=== PATIENT | female | born 1960 | race Caucasian/White ===

== ENCOUNTER 2019-07-17 07:47 | Outpatient (CLI) | payer BC, SELFPAY ==
--- NOTE | ~2019-07-17 | DEXA_ITS ---
Bone Density Report Name: Dori Huff Age: 59 Sex: Female Ethnicity: White Date of : 1960 Indication: postmenopausal; cancer; hysterectomy; Referring Provider: Rusyt Garcia Study: Bone densitometry was performed. Exam Date: July 17, 2019 Accession number: [id number] Bone Density: Region BMD T-score Z-score Classification AP Spine (L1-L4) 0.874 -1.6 -0.3 Osteopenia Femoral Neck (Left) 0.751 -0.9 0.3 Normal Total Hip (Left) 0.875 -0.6 0.3 Normal Total Hip Bilateral Avg 0.848 -0.8 0.1 Normal Femoral Neck (Right) 0.642 -1.9 -0.7 Osteopenia Total Hip (Right) 0.820 -1.0 -0.2 Normal World Health Organization criteria for BMD impression classify patients as: Normal (T-score at or above -1.0), Osteopenia (T-score between -1.0 and -2.5), or Osteoporosis (T-score at or below -2.5). 10-year Fracture Risk(1): Major Osteoporotic Fracture 8.4% Hip Fracture 0.9% Reported Risk Factors: [place] (), Neck BMD=0.642, BMI=26.9 (1) FRAX(R) Version 3.08. Fracture probability calculated for an untreated patient. Fracture probability may be lower if the patient has received treatment. Previous Exams: Region Exam Age BMD T-score BMD Change BMD Change Date g/cm2 vs Baseline vs Previous AP Spine(L1-L4) 07/17/2019 59 0.874 -1.6 -0.066(-7.0%)# -0.067(-7.1%)* 06/20/2014 54 0.941 -1.0 0.000(0.1%)# 0.000(0.1%)# 11/18/2011 51 0.941 -1.0 Total Hip(Left) 07/17/2019 59 0.875 -0.6 0.015(1.7%)# 0.014(1.7%) 06/20/2014 54 0.860 -0.7 0.000(0.1%)# 0.000(0.1%)# 11/18/2011 51 0.860 -0.7 Total Hip(Right) 07/17/2019 59 0.820 -1.0 -0.003(-0.4%)# -0.036(-4.2%)* 06/20/2014 54 0.856 -0.7 0.033(4.0%)# 0.033(4.0%)# 11/18/2011 51 0.823 -1.0 *Denotes significance at 95% confidence level, LSC for AP Spine = 0.022 g/cm2, LSC for Total Hip = 0.027 g/cm2 Clinical Information Provided by Patient: Has the following medical conditions: Cancer, Hysterectomy Patient maximum height was 61 Menopause Age: 48 Drinks caffeinated beverages Onset of menses at age 16 Number of children 1 Impression: The patient has low bone mass, based on the Right Femoral Neck T-score. The patient has an estimated ten-year risk of hip fracture of 0.9% and an estimated ten-year risk of major fracture of 8.4%, based on the WHO FRAX algorithm. The BMD for the AP Spine(L1-L4) decreased, changing by -7.1% since the last DXA exam. The BMD for t
== END 2019-07-17 07:48 | disposition home or self-care (01) ==
PROVIDERS: Family Provider Obstetrics & Gynecology; PCP Internal Medicine; Visit Provider Internal Medicine
DX: Z78.0 Asymptomatic menopausal state (principal); M85.88 Other specified disorders of bone density and structure, other site; M85.811 Other specified disorders of bone density and structure, right shoulder
CPT/HCPCS: 77080

== ENCOUNTER 2020-03-19 16:57 | Outpatient (CLI) | payer BC, SELFPAY ==
--- NOTE | ~2020-03-19 | MM_ITS ---
EXAMINATION: MM screening [facility] BI w kellie HISTORY: Screening mammogram TECHNIQUE: Craniocaudal and mediolateral oblique 3-D tomosynthesis images were obtained and synthetic 2-D images were generated. CAD analysis was submitted and interpreted. COMPARISON: 01/18/2019, 01/12/2018, 12/27/2016 BREAST PARENCHYMAL COMPOSITION: There are scattered areas of fibroglandular density. FINDINGS: There is no evidence of suspicious mass, calcification, or architectural distortion to sugg est malignancy in either breast. There has been no suspicious interval change. IMPRESSION: 1. No mammographic evidence of malignancy. 2. Recommend routine screening mammography in one year. BI-RADS Category 1: Negative Reviewed, dictated and finalized at location A.
== END 2020-03-19 16:58 | disposition home or self-care (01) ==
LOC: ANHIMG 16:59
PROVIDERS: PCP Internal Medicine; Visit Provider Obstetrics & Gynecology
DX: Z12.31 Encounter for screening mammogram for malignant neoplasm of breast (principal)
CPT/HCPCS: 77063; 77067

== ENCOUNTER → 2020-09-05 00:31 | Outpatient (CLI) | payer BC, SELFPAY ==
[2020-09-05 19:12] LABS: SARS-CoV-2 RNA PCR Negative
== END ==
PROVIDERS: PCP Internal Medicine; Visit Provider Internal Medicine Gastroenterology
DX: Z01.812 Encounter for preprocedural laboratory examination (principal); Z20.822 Contact with and (suspected) exposure to COVID-19
CPT/HCPCS: C9803; U0003; U0005

== ENCOUNTER 2020-09-07 23:55 | Emergency (ER) | payer BC, SELFPAY ==
[2020-09-07 23:55] VITALS: BP 132/85; PULSE 69; RESP 18; TEMP 36.7; O2SAT 98
--- NOTE | 2020-09-07 23:57 | ED.NEUROSD ---
HPI - Neuro Symptoms/Deficit General Chief Complaint: Neuro Symptoms/Deficit Stated Complaint: resolved tingling in ext, resolved slurred speech Time Seen by Provider: 09/07/20 23:56 History of Present Illness HPI Narrative: 60 yo female presents to the ED from home for slurred speech and extremity tingling. She is currently doing a bowel prep for a colonoscopy in the morning. She awoke around 2200 to use the restroom. While on the toilet she began to vomit. She then noted tingling in the hands and feet. She called out for help and she felt that her speech was slurred. Her symptoms resolved prior to arrival. No chest pain, SOB, confusion. Related Data Home Medications Medication Instructions Recorded Confirmed cholecalciferol (vitamin D3) 125 mcg PO DAILY 08/25/20 09/08/20 [Vitamin D3] loratadine [Claritin] 10 mg PO DAILY 08/25/20 09/08/20 Allergies Allergy/AdvReac Type Severity Reaction Status Date / Time No Known Allergies Allergy Verified 09/08/20 10:50 Review of Systems Review of Systems: All systems reviewed & are unremarkable except as noted in HPI and below Constitutional: Constitutional: Denies chills and Denies fever(s) ENT: Reports system reviewed and no additional complaints, except as documented Cardiovascular: Cardiovascular: Denies chest pain Respiratory: Respiratory: Denies dyspnea Gastrointestinal: Gastrointestinal: Reports diarrhea, Reports nausea and Reports vomiting Genitourinary: Genitourinary: Reports no additional female genitourinary complaints Neurologic: Denies confusion, Reports numbness and Denies weakness [facility] Past Medical History Medical History (Updated 09/09/20 @ 00:00 by Wily Daluna) GERD (gastroesophageal reflux disease) Hx of non-Hodgkin's lymphoma Peripheral polyneuropathy Surgical History Surgical History History of hysterectomy Family History Family History Father Diabetes mellitus Family history of diabetes mellitus in first degree relative Sibling Family history of glaucoma Family history of kidney stones Mother Hypertension Family history of Alzheimer's disease Grandparent Family history of lung cancer Other Family history of arthritis Family history of osteoporosis Social History Social History Smoking packs per day: 1 Smoking cigarettes per day: 20.0 Years smoked: 10 Smoking pack-years: 10.00 Smoking status: Former smoker Tobacco type: cigarettes Smoking end date: 06/19/88 Alcohol intake: never Substance use: never Substance use type: does not use Living arrangements: with family Gender identity (if verbalized by the patient): Female Spiritual care concerns: No Exam Const: General: healthy appearing, no acute distress and alert Orientation/consciousness: patient oriented x3 HENMT: Head: normal to inspection Eyes: Conjunctivae: conjunctivae normal Pupils: Equal, round and reactive pupils present EOM: EOMs intact bilaterally Neck: Neck: normal visual inspection Chest: Chest palpation & inspection: no tenderness Resp: Effort & Inspection: normal respiratory effort Auscultation: clear to auscultation bilaterally, no rales, no rhonchi and no wheezes Cardio: Jugular venous distension: no JVD Rate: regular rate Rhythm: regular rhythm Heart sounds: no murmurs GI: Inspection: non-distended GI Palp: Yes Soft to palpation and No Tenderness to palpation present (GI) Skin: General skin exam: normal color Neuro: General: patient oriented x3, moves all extremities, no focal motor deficits and CN's II-XI intact bilaterally Cranial nerves: Yes Nystagmus not present Speech: normal speech Gait exam (Neuro): Normal gait present Extrem: General: no edema Psych: Appearance: well kempt Affect: normal affect Course Vi
--- NOTE | 2020-09-08 00:02 | ECG_ITS ---
Measurements Intervals [place] Rate: 70 P: 25 MN: 166 QRS: 3 QRSD: 92 T: 30 QT: 422 QTc: 456 Interpretive Statements SINUS RHYTHM INCOMPLETE RIGHT BUNDLE BRANCH BLOCK BORDERLINE ST ABNORMALITY- ANTEROLAT/INF LEADS BORDERLINE ECG Electronically Signed On 09-11-2020 10:22:29 CDT by Ino Botello D.O.
[2020-09-08] MEDS: ONDANSETRON INJ 4 MG/2 ML VIAL IV PUSH (00:25)
[2020-09-08] MEDS: SODIUM CHLORIDE 0.9% IV 1,000 ML 999 ML IV CONT (00:25)
[2020-09-08 00:34] LABS: Basophils Percent Auto 0.4 % (0.2-1.2); Eosinophils Absolute Auto 0.1 K/mm3 (0-0.3); Eosinophils Percent Auto 0.9 % (0-4.4); Hemoglobin 14.2 g/dL (12.0-15.0); Immature Granulocyte Absolute 0.04 K/mm3 (0.00-0.031); Immature Granulocyte Percent A 0.4 % (0-0.5); Lymphocytes Absolute Auto 1.95 K/mm3 (0.9-3.2); Lymphocytes Percent Auto 18.7 % (18.3-44.2); Mean Corpuscular HGB Conc 33.8 g/dl (32-36); Mean Corpuscular Hemoglobin 30.9 pg (26-34); Mean Corpuscular Volume 91.3 fl (80-100); Mean Platelet Volume 9.9 fl (7.4-10.4); Monocytes Absolute Auto 0.6 K/mm3 (0.1-0.6); Monocytes Percent Auto 5.5 % (2.6-8.5); Neutrophils Absolute Auto 7.8 K/mm3 (1.3-6.7); Neutrophils Percent Auto 74.1 % (45.5-73.1); Platelet Count Result 213 k/mm3 (150-375); Red Cell Distribution Width 12.5 % (11.5-14.5); White Blood Count 10.4 K/mm3 (4.5-10.0)
[2020-09-08 00:49] LABS: Alanine Aminotransferase 19 U/L (4-35); Alkaline Phosphatase 93 U/L (38-126); Anion Gap 7 mmol/L (8-16); Aspartate Amino Transferase 23 U/L (14-36); Bilirubin,Total 1.2 mg/dL (0.2-1.3); Blood Urea Nitrogen 14 mg/dL (7-17); Calcium 8.7 mg/dL (8.4-10.2); Carbon Dioxide 27 mmol/L (22-30); Chloride 105 mmol/L (98-107); Estimated CRCL calculation 65 ml/min; Estimated Glomerular Filt Rate > 60; Glucose 115 mg/dL (65-105); Potassium 3.4 mmol/L (3.4-5.0); Sodium 139 mmol/L (137-145)
[2020-09-08 01:16] VITALS: BP 116/69; PULSE 72; RESP 16; O2SAT 98
[2020-09-08 01:41] VITALS: BP 113/70; BP 122/73; PULSE 68; PULSE 81; RESP 18; O2SAT 97
[2020-09-08 01:43] VITALS: BP 115/65; BP 122/73; PULSE 72; PULSE 90; RESP 22; O2SAT 97
[2020-09-08 01:45] VITALS: BP 115/65; PULSE 88; RESP 21; O2SAT 97
[2020-09-08 01:46] VITALS: BP 120/70; PULSE 81; RESP 20; O2SAT 97
== END 2020-09-08 02:09 | disposition home or self-care (01) ==
PROVIDERS: Emergency Provider Emergency Medicine; PCP Internal Medicine
DX: E86.0 Dehydration (principal); K21.9 Gastro-esophageal reflux disease without esophagitis; Z85.72 Personal history of non-Hodgkin lymphomas; G62.9 Polyneuropathy, unspecified; Z87.891 Personal history of nicotine dependence; I45.10 Unspecified right bundle-branch block; R94.31 Abnormal electrocardiogram [ECG] [EKG]
CPT/HCPCS: 36415; 80053; 85025; 93005; 96361; 96374; 99284; J2405; J7030

== ENCOUNTER 2020-09-08 00:13 | Day surgery (SDC) | payer BC, SELFPAY ==
[2020-08-25 14:18] VITALS: BMI 27.8
[2020-09-08 10:51] VITALS: BP 133/67; PULSE 90; RESP 17; TEMP 36.6; O2SAT 98; BMI 27.4
[2020-09-08] MEDS: LACTATED RINGERS 1,000 ML 150 ML IV CONT (11:03)
--- NOTE | 2020-09-08 11:19 | WPDANESEPPF ---
Anes - Initial Pre Proc Eval Procedure: Operation Date: 09/08/20 12:00 Proposed Procedures p Esophagogastroduodenoscopy And Screening Colonoscopy - Murphy Aguirre MD Date/Time: 09/08/20 11:19 Surgeon: Murphy Aguirre MD Pre Op Diagnosis: Neoplasm Screening, Dysphagia Patient Data Age: 60 Gender: F Height: 5 ft 1 in Weight: 65.9 kg Last Vital Signs Temp 97.8 F 09/08/20 10:51 Pulse 90 09/08/20 10:51 Resp 17 09/08/20 10:51 BP 133/67 09/08/20 10:51 Pulse Ox 98 09/08/20 10:51 Allergies Allergy/AdvReac Type Severity Reaction Status Date / Time No Known Allergies Allergy Verified 09/08/20 10:50 Home Medications Medication Instructions Recorded Confirmed Type cholecalciferol (vitamin D3) 125 mcg PO DAILY 08/25/20 09/08/20 History [Vitamin D3] loratadine [Claritin] 10 mg PO DAILY 08/25/20 09/08/20 History Patient hx anesthesia problems: none Family hx anesthesia problems: none PMFSH Past Medical History Medical History (Updated 09/08/20 @ 11:12 by Jaxon Rock MD) GERD (gastroesophageal reflux disease) Hx of non-Hodgkin's lymphoma Peripheral polyneuropathy Surgical History Surgical History History of hysterectomy Family History Family History Father Diabetes mellitus Family history of diabetes mellitus in first degree relative Sibling Family history of glaucoma Family history of kidney stones Mother Hypertension Family history of Alzheimer's disease Grandparent Family history of lung cancer Other Family history of arthritis Family history of osteoporosis Social History Social History Smoking packs per day: 1 Smoking cigarettes per day: 20.0 Years smoked: 10 Smoking pack-years: 10.00 Smoking status: Former smoker Tobacco type: cigarettes Smoking end date: 06/19/88 Alcohol intake: never Substance use: never Substance use type: does not use Living arrangements: with family Gender identity (if verbalized by the patient): Female Spiritual care concerns: No Anes - Eval Final PreProcedure Day of Procedure 09/08/20 11:19 Patient weight: overweight Heart: regular rate and rhythm Lungs: clear to auscultation Airway: Mallampati scale class II Neurological: alert and oriented Last oral intake: >/= 8 hours ASA classification: III Emergent: no Anesthetic plan: proceed Anesthesia type and monitoring: general GIVS and standard monitoring Informed Consent: The patient's anesthetic plan and its attendant risks and benefits were discussed with the patient/family/POA. Questions were solicited and answers provided to the satisfaction of the patient/family/POA.
--- NOTE | 2020-09-08 11:21 | WPDHPUPDATE1 ---
History and Physical Update Update Date/Time: 09/08/20 11:21 History and Physical has been reviewed, including an updated exam of the patient. There are NO changes in the patient's condition. Risks, benefits, and alternatives have been discussed and questions answered. Patient agrees to proceed with procedure.
--- NOTE | 2020-09-08 11:46 | SUR.OPER ---
EGD ENDED 1133, COLONOSCOPY STARTED
[2020-09-08 12:01] VITALS: BP 110/74; PULSE 84; RESP 18; O2SAT 99
[2020-09-08 12:11] VITALS: BP 120/81; PULSE 77; RESP 20; O2SAT 99
[2020-09-08 12:30] VITALS: BP 134/87; PULSE 72; RESP 18; O2SAT 99
== END 2020-09-08 12:57 | disposition home or self-care (01) ==
PROVIDERS: PCP Internal Medicine; Visit Provider Internal Medicine Gastroenterology
PROC: 0DJ08ZZ Inspection of Upper Intestinal Tract, Via Natural or Artificial Opening Endoscopic (ICD-10-PCS; CPT 43235; principal; 2020-09-08 12:00)
DX: Z12.11 Encounter for screening for malignant neoplasm of colon (principal); D12.3 Benign neoplasm of transverse colon; D12.5 Benign neoplasm of sigmoid colon; D12.8 Benign neoplasm of rectum; R13.10 Dysphagia, unspecified; Z90.710 Acquired absence of both cervix and uterus; Z85.72 Personal history of non-Hodgkin lymphomas; Z94.89 Other transplanted organ and tissue status
CPT/HCPCS: 45385; 45380; 43239; 43248; 88305; J2704; J7120

== ENCOUNTER → 2021-01-25 08:44 | Outpatient (CLI) | payer BC, SELFPAY ==
[2021-01-26 17:39] LABS: SARS-CoV-2 RNA PCR Negative
== END ==
PROVIDERS: PCP Internal Medicine; Visit Provider Internal Medicine
DX: R68.89 Other general symptoms and signs (principal); Z20.822 Contact with and (suspected) exposure to COVID-19
CPT/HCPCS: C9803; U0003; U0005

== ENCOUNTER → 2021-03-05 11:17 | Outpatient (CLI) | payer BC, SELFPAY ==
--- NOTE | ~2021-03-05 | XR_ITS ---
EXAMINATION: XR abdomen/kub 1V INDICATION: Left flank pain, calculus of kidney TECHNIQUE: Supine views of the abdomen were obtained on 2 radiographs. COMPARISON: 11/05/2015 FINDINGS: Bowel contents project over the kidneys limiting sensitivity for renal stones. No urolithia sis is identified. There are phleboliths of the pelvis. The bowel gas pattern is normal. There is a m oderate volume of colonic stool. Mild osteoarthritis is noted in the hips. IMPRESSION: 1. No urolithiasis identified. Reviewed, dictated and finalized at location A.
== END ==
PROVIDERS: PCP Internal Medicine; Visit Provider Internal Medicine
DX: N20.0 Calculus of kidney (principal)
CPT/HCPCS: 74018

== ENCOUNTER 2021-03-12 12:59 | Outpatient (CLI) | payer BC, SELFPAY ==
--- NOTE | ~2021-03-12 | CT_ITS ---
EXAMINATION: CT abdomen pelvis wo con EXAM DATE: 03/12/2021 13:43 INDICATION: Stone protocol. Left-sided back pain. TECHNIQUE: Spiral CT of the abdomen and pelvis was performed without contrast. Axial, coronal and sag ittal images were reviewed. The dose-length product (DLP) for this examination was 176.53 mGy-cm. T he exposure was tailored according to patient size (auto mA exposure control), and iterative reconstr uction (ASIR) was used as additional dose reduction technique. Comparison is made to prior examinatio n from 01/26/2018. FINDINGS: There is a stone left posterolateral aspect of the bladder region of the UVJ with mild left -sided hydronephrosis. This measures 3 mm. No other genitourinary stones. The uterus is not identifie d and has likely been surgically resected. The bladder is unremarkable. The liver, spleen, adrenal glands and pancreas are unremarkable. Gallbladder is unremarkable. No biliary obstruction. There i s no retroperitoneal or pelvic lymphadenopathy. There are no findings to suggest appendicitis. There is 3 cm gastric cardial diverticulum. There is expected amount of colonic stool. No free intraperitoneal gas. The heart is normal in size. The re are no pericardial or pleural effusions. The lung bases are unremarkable. There are no osteoblas tic or osteolytic lesions identified. IMPRESSION: Left UVJ 3 mm stone, mild hydronephrosis. I left a message for Dr. Rusty Garcia MD on 03/12/2021 14:19 CDT. Indicated the impression of the ex am, provided my phone number for call back if necessary. Reviewed, dictated and finalized at location B. IMPRESSION: Left UVJ 3 mm stone, mild hydronephrosis. I left a message for Dr. Rusty Garcia MD on 03/12/2021 14:19 CDT. Indicated th e impression of the exam, provided my phone number for call back if necessary.
== END 2021-03-12 13:00 | disposition home or self-care (01) ==
LOC: ANHIMG 13:00
PROVIDERS: PCP Internal Medicine; Visit Provider Internal Medicine
DX: N20.0 Calculus of kidney (principal); N13.30 Unspecified hydronephrosis
CPT/HCPCS: 74176

== ENCOUNTER 2021-04-20 07:51 | Outpatient (CLI) | payer BC, SELFPAY ==
--- NOTE | ~2021-04-20 | MM_ITS ---
EXAMINATION: MM screening [facility] BI w kellie HISTORY: Screening TECHNIQUE: Craniocaudal and mediolateral oblique 3-D tomosynthesis images were obtained and synthetic 2-D images were generated. CAD analysis was submitted and interpreted. COMPARISON: Comparison to multiple prior studies sequentially, with oldest reviewed study dated 07/2014. BREAST PARENCHYMAL COMPOSITION: There are scattered areas of fibroglandular density. FINDINGS: There is no evidence of suspicious mass, calcification, or architectural distortion to sugg est malignancy in either breast. There has been no suspicious interval change. IMPRESSION: 1. No mammographic evidence of malignancy. 2. Recommend routine screening mammography in one year. BI-RADS Category 1: Negative Reviewed, dictated and finalized at location A.
== END 2021-04-20 07:52 | disposition home or self-care (01) ==
PROVIDERS: PCP Internal Medicine; Visit Provider Obstetrics & Gynecology
DX: Z12.31 Encounter for screening mammogram for malignant neoplasm of breast (principal)
CPT/HCPCS: 77063; 77067

== ENCOUNTER 2021-12-08 13:20 | Outpatient (CLI) | payer BC, SELFPAY ==
--- NOTE | ~2021-12-08 | CT_ITS ---
EXAMINATION:CT diagnostic chest wo con DATE: 12/08/2021 13:35 INDICATION: Non-Hodgkin's lymphoma. TECHNIQUE: Computed tomography (CT) of the chest was performed without intravenous contrast. Automate d exposure control and iterative reconstruction technique were employed. The dose-length product (DLP ) was 118.67 mGy-cm. COMPARISON: Chest CT 07/16/2007, CT abdomen and pelvis 03/12/2021 FINDINGS: There is mild scarring at the lung apices. There is mild atelectasis in the lower lobes. A calcified left lung nodule is consistent with old granulomatous disease. There is a trace right pleur al effusion. The heart size is normal. No pericardial effusion. There are no pathologically enlarged lymph nodes. There is a diverticulum of the fundus of the stomach. There is mild thoracic spondylosis . IMPRESSION: 1. No evidence of lymphoma. Reviewed, dictated and finalized at location A. IMPRESSION: 1. No evidence of lymphoma.
== END 2021-12-08 13:21 | disposition home or self-care (01) ==
PROVIDERS: PCP Family Medicine; Visit Provider Family Medicine
DX: Z85.72 Personal history of non-Hodgkin lymphomas (principal); M47.814 Spondylosis without myelopathy or radiculopathy, thoracic region
CPT/HCPCS: 71250

== ENCOUNTER 2022-07-06 13:04 | Outpatient (CLI) | payer BC, SELFPAY ==
--- NOTE | ~2022-07-06 | MM_ITS ---
EXAMINATION: MM screening [facility] BI w kellie HISTORY: Screening mammogram TECHNIQUE: Craniocaudal and mediolateral oblique 3-D tomosynthesis images were obtained and synthetic 2-D images were generated. CAD analysis was submitted and interpreted. COMPARISON: 04/20/2021, 03/19/2020, 01/18/2019 BREAST PARENCHYMAL COMPOSITION: There are scattered areas of fibroglandular density. FINDINGS: No suspicious mass, calcification, or architectural distortion are identified in either ana ast to suggest malignancy. There has been no suspicious interval change. IMPRESSION: 1. No mammographic evidence of malignancy. 2. Recommend routine screening mammography in one year. BI-RADS Category 1: Negative Reviewed, dictated and finalized at location A. NOLOGY SPECIALIST
== END 2022-07-06 13:05 | disposition home or self-care (01) ==
LOC: ANHIMG 13:06
PROVIDERS: PCP Family Medicine; Visit Provider Obstetrics & Gynecology
DX: Z12.31 Encounter for screening mammogram for malignant neoplasm of breast (principal)
CPT/HCPCS: 77063; 77067

== ENCOUNTER 2022-12-12 07:54 | Outpatient (CLI) | payer BC, SELFPAY ==
--- NOTE | ~2022-12-12 | DEXA_ITS ---
Bone Density Report Name: KLAUDIA MARCUM Age: 62 Sex: Female Ethnicity: White Date of : 1960 Indication: postmenopausal; screening for osteoporosis; cancer; Referring Provider: TOM HICKS Study: Bone densitometry was performed. Exam Date: December 12, 2022 Accession number: [id number] Bone Density: Region BMD T-score Z-score Classification AP Spine(L1-L4) 0.906 -1.3 0.2 Osteopenia Femoral Neck (Left) 0.698 -1.4 0.0 Osteopenia Total Hip (Left) 0.830 -0.9 0.1 Normal Femoral Neck (Right) 0.711 -1.2 0.1 Osteopenia Total Hip (Right) 0.797 -1.2 -0.2 Osteopenia Total Hip Mean 0.813 -1.1 -0.1 Osteopenia World Health Organization criteria for BMD impression classify patients as: Normal (T-score at or above -1.0), Osteopenia (T-score between -1.0 and -2.5), or Osteoporosis (T-score at or below -2.5). 10-year Fracture Risk(1): Major Osteoporotic Fracture 7.9% Hip Fracture 0.6% Reported Risk Factors: [place] (), Neck BMD=0.698, BMI=26.4 (1) FRAX(R) Version 3.08. Fracture probability calculated for an untreated patient. Fracture probability may be lower if the patient has received treatment. Previous Exams: Region Exam Age BMD T-score BMD Change BMD Change Date g/cm2 vs Baseline vs Previous Total Hip(Left) 12/12/2022 62 0.830 -0.9 -0.045 (-5.1%) -0.045 (-5.1%) 07/17/2019 59 0.875 -0.6 Total Hip(Right) 12/12/2022 62 0.797 -1.2 -0.023 (-2.8%) -0.023 (-2.8%) 07/17/2019 59 0.820 -1.0 *Denotes significance at 95% confidence level, LSC for Total Hip = 0.027 g/cm2 Clinical Information Provided by Patient: Has the following medical conditions: Cancer Patient maximum height was 62 Menopause Age: 48 Drinks caffeinated beverages Onset of menses at age 16 Number of children 1 Impression: The patient has low bone mass, based on the Left Femoral Neck T-score. The patient has an estimated ten-year risk of hip fracture of 0.6% and an estimated ten-year risk of major fracture of 7.9%, based on the WHO FRAX algorithm. The BMD for the Total Hip(Left) decreased, changing by -5.1% since the last DXA exam. Discussion: BONE DENSITY IS LOW AT ONE OR MORE SKELETAL SITES. This patient's lowest T-score is low at one or more skeletal sites. It meets the World Health Organization's (WHO) criteria for ?low bone mass? (T-score between -1.0 and -2.5). The patient's 10-year risk of fracture as calculated by FRAX is less than the threshold where pharmacological t
== END 2022-12-12 07:55 | disposition home or self-care (01) ==
LOC: ANHIMG 07:55
PROVIDERS: PCP Family Medicine; Visit Provider Nurse Practitioner Gerontology
DX: Z78.0 Asymptomatic menopausal state (principal); M85.89 Other specified disorders of bone density and structure, multiple sites
CPT/HCPCS: 77080

== ENCOUNTER 2023-09-11 08:21 | Outpatient (CLI) | payer BC, SELFPAY ==
--- NOTE | ~2023-09-11 | MM_ITS ---
EXAMINATION: MM screening [facility] w kellie HISTORY: Screening mammogram TECHNIQUE: Craniocaudal and mediolateral oblique 3-D tomosynthesis images were obtained and synthetic 2-D images were generated. CAD analysis was submitted and interpreted. COMPARISON: 07/06/2022, 04/20/2021, 01/18/2019 bilateral screening mammogram examinations BREAST PARENCHYMAL COMPOSITION: There are scattered areas of fibroglandular density. FINDINGS: Stable fibroglandular asymmetry since 2019. There is no evidence of suspicious mass, calcif ication, or architectural distortion to suggest malignancy in either breast. There has been no suspic ious interval change. IMPRESSION: 1. No mammographic evidence of malignancy. 2. Recommend routine screening mammography in one year. BI-RADS Category 2: Benign finding(s). Reviewed, dictated and finalized at location A.
== END 2023-09-11 08:22 | disposition home or self-care (01) ==
LOC: ANHIMG 08:25
PROVIDERS: PCP Family Medicine; Visit Provider Physician Assistant
DX: Z12.31 Encounter for screening mammogram for malignant neoplasm of breast (principal)
CPT/HCPCS: 77063; 77067

== ENCOUNTER 2024-08-08 10:32 | Outpatient (CLI) | payer BC, SELFPAY ==
--- OUTSIDE RECORDS SUMMARY | 2024-08-08 10:55 | XMS_ITS | Clinical Summary ---
Author Organization [facility] Address [address] [place] [address] Care Team Providers Care Electronic Operator Name Role Phone Sally Wood MD Primary Care Provider Source Comments [facility],non-owned Affiliates and Associated Physician Practices is amultiple site organization consisting of ambulatory clinics and hospital sitesin [place], [place], [place] and [place]. This disclosure is being madepursuant to the Care Everywhere program and may not contain all information available regarding this patient. Last updated 18.[facility] Social History Tobacco Use Types Packs/Day Years Used Date Smoking Tobacco: Never Assessed Sex and Gender Information Value Date Recorded Sex Assigned at Not on file Gender Identity Not on file Sexual Orientation Not on file Last Filed Vital Signs Vital Sign Reading Time Taken Comments Blood Pressure 124/83 04/16/2015 2:16 PM CDT Pulse 66 04/16/2015 2:16 PM CDT Temperature 36.4 C (97.6 F) 04/16/2015 2:16 PM CDT Respiratory Rate 18 04/16/2015 2:16 PM CDT Oxygen Saturation 99% 04/16/2015 2:16 PM CDT Inhaled Oxygen Concentration - - Weight 62.6 kg (138 lb) 04/16/2015 2:16 PM CDT Height - - Body Mass Index - - Plan of Treatment Health Maintenance Due Date Last Done Comments COLOGUARD (AGES 45-75) - COL ON CA SCREENING 1960 COLON MONITORING 1960 COLONOSCOPY - COLON CA SCREENING 1960 CT COLONOGRAPHY - COLON CA SCREENING 1960 Colorectal Cancer Screening 1960 FIT - COLON CA SCREENING 1960 FLEX SIG - COLON CA SCREENING 1960 LIPID TESTING 1960 MAMMOGRAM 1960 PAP SMEAR 1961 HIV SCREENING 1976 HEPATITIS C SCREENING 05/09/1979 DTAP/TDAP/TD VACCINES (1 - Tdap) 1980 PNEUMOCOCCAL VACCINE 50+ (1 of 1 - PCV) 2011 ZOSTER VACCINE (1 of 2) 2011 COVID-19 VACCINE (1 - 2023-2 5 season) 2024 INFLUENZA VACCINE (#1) 2024 04/16/2015 DEPRESSION SCREENING 06/19/2024 Respiratory Syncytial Virus (RSV) Vaccine Pt: or over 60 yrs (1 - 1-dose 75+ series) 2036 HEPATITIS B VACCINE Aged Out No longe r eligible based on patient's age to complete this topic HIB VACCINE Aged Out No longer eligi ble based on patient's age to complete this topic HPV VACCINE Aged Out No longer eligi ble based on patient's age to complete this topic MENINGOCOCCAL (Group B) VACCINE Aged Out No longer eligible based on patient's age to complete this topic MENINGOCOCCAL VACCINE Aged Out No malik rufina eligible based on patient's age to complete this topic PNEUMOCOCCAL VACCINE Aged Out No long er eligible based on patient's age to complete this topic Care Teams Electronic Operator Relationship Specialty Start Date End Date Sally Wood MD [address] [place] [address] [address] [place] [id number] PCP - General Family Medicine 08/14/18
--- OUTSIDE RECORDS SUMMARY | 2024-08-08 10:55 | XMS_ITS | Patient Health Summary ---
Author Organization [facility] Address [address] [place] [address] Care Team Providers Care Supervisor Locomotive Name Role Phone Sally Wood MD Primary Care Provider Note from [facility],non-owned Affiliates and Associated Physician Practices is amultiple site organization consisting of ambulatory clinics and hospital sitesin [place], [place], [place] and [place]. This disclosure is being madepursuant to the Care Everywhere program and may not contain all information available regarding this patient. Last updated 18.[facility] Social History Tobacco Use Types Packs/Day Years [...] - - Body Mass Index - - Procedures * DERMATOPATHOLOGY(Performed 10/18/2022) * DERMATOPATHOLOGY(Performed 01/07/2021) * DERMATOPATHOLOGY(Performed 08/14/2019) * DERMATOPATHOLOGY(Performed 01/23/2019) * COMPREHENSIVE METABOLIC PANEL(Performed 04/16/2015) * LDH BLOOD(Performed 04/16/2015) * CBC W AUTO DIFFERENTIAL(Performed 04/16/2015) * CBC W AUTO DIFFERENTIAL(Performed 04/16/2015) * CT CHEST ABDOMEN PELVIS W CONT(Performed 04/15/2015) * CREATININE BLOOD - POCT (IP) [facility](Performed 04/15/2015) * LDH BLOOD(Performed 04/23/2014) * COMPREHENSIVE METABOLIC PANEL(Performed 04/23/2014) * CBC W AUTO DIFFERENTIAL(Performed 04/23/2014) * CBC W AUTO DIFFERENTIAL(Performed 04/23/2014) * PET CT WHOLE BODY(Performed 04/17/2014) * GLUCOSE - POINT OF CARE (AMB) [facility](Performed 04/17/2014) * GLUCOSE - POINT OF CARE (AMB) [facility](Performed 04/17/2014) * COMPREHENSIVE METABOLIC PANEL(Performed 04/17/2013) * LDH BLOOD(Performed 04/17/2013) * CBC W AUTO DIFFERENTIAL(Performed 04/17/2013) * PET CT WHOLE BODY(Performed 04/10/2013) * GLUCOSE - POINT OF CARE (AMB) [facility](Performed 04/10/2013) * GLUCOSE - POINT OF CARE (AMB) [facility](Performed 04/10/2013) * IGM BLOOD(Performed 04/09/2012) * IGG BLOOD(Performed 04/09/2012) * IGA BLOOD(Performed 04/09/2012) * LDH BLOOD(Performed 04/09/2012) * COMPREHENSIVE METABOLIC PANEL(Performed 04/09/2012) * CBC W AUTO DIFFERENTIAL(Performed 04/09/2012) * CYTOMEGALOVIRUS DNA RT-PCR QUANT(Performed 04/09/2012) * PET CT WHOLE BODY(Performed 04/05/2012) * GLUCOSE - POINT OF CARE (AMB) [facility](Performed 04/05/2012) * GLUCOSE - POINT OF CARE (AMB) [facility](Performed 04/05/2012) * BCL-2 GENE TRANSLOCATION PANEL(Performed 04/07/2011) * RITUXAN SENSITIVITY (CD20)(Performed 04/07/2011) * IGM BLOOD(Performed 04/07/2011) * IGG BLOOD(Performed 04/07/2011) * IGA BLOOD(Performed 04/07/2011) * CBC W AUTO DIFFERENTIAL(Performed 04/07/2011) * COMPREHENSIVE METABOLIC PANEL(Performed 04/07/2011) * CYTOMEGALOVIRUS DNA RT-PCR QUANT(Performed 04/07/2011) * PATHOLOGY/GENETICS HISTORICAL-ONBASE(Performed 07/25/2007) Results * DERMATOPATHOLOGY (10/18/2022 3:33 AM CDT) Only the most recent of4 resultswithin the time period is included. Case Report Dermatopathology Report Case: [id number] Authorizing Provider: Ann Smith DO Collected: 10/18/2022 03:33 AM Ordering Location: [facility] DermPath Lab Received: 10/19/2022 12:03 PM Pathologist: Shruthi Mcdermott MD Specimens: A) - Skin, left upper back B) - Skin, left upper arm 1:36 PM CDT DERMATOPATHOLOGY LABORATORY Final Diagnosis Specimen A. SKIN, left upper back: HYPERPLASTIC (HYPERTROPHIC) ACTINIC KERATOSIS (L57.0) EPIDERMAL NECROSIS SUGGESTIVE OF EXCORIATION (L98.499) Specimen B. SKIN, left upper arm: BENIGN VERRUCOUS KERATOSIS (L82.1) 1:36 PM CDT DERMATOPATHOLOGY LABORATORY Clinical History A-B: R/O NMSC 1:36 PM CDT DERMATOPATHOLOGY LABORATORY Gross Description Specimen A: Received is one formalin filled container labeled with the patient's name and designated left upper back. The specimen consists of a shave biopsy measuring 7x6x1 mm. Jar 0. Specimen B: Received is one formalin filled container labeled with the patient's name and designated left upper arm. The specimen consists of a shave biopsy measuring 5x4x1 mm. Jar 0. 1:36 PM CDT DERMATOPATHOLOGY LABORATORY Microscopic Description Specimen A. SKIN, left upper back: There is hyperkeratosis alternating with parakeratosis. There is epidermal hyperplasia with disorderly maturation of keratinocytes with nuclear pleomorphism confined to the lower half of the epidermis. The epidermis is focally necrotic and covered with a scale-crust. There is fibrin at the base. Specimen B. SKIN, left upper arm: Sections show hyperkeratosis, papillomatosis, hypergranulosis, and acanthosis. These histological findings can be seen in a verruca vulgaris or a seborrheic keratosis. 1:36 PM CDT DERMATOPATHOLOGY LABORATORY Disclaimer An external and internal positive and negative controls are appropriate for the histochemical, immunohistochemical and immunofluorescence stain(s) in this case (if any), except where stated explicitly. The performance characteristics of the stain(s) cited in this report were developed and its performance characteristic determined by the Dermatopathology Laboratory at [facility], directed by Dr. Angelika Grier. These tests need not be, and therefore are not, approved by the [place] Food and Drug Administration. The tests are used for clinical purposes. Billing Codes Specimen Charges Stain Charges 38427 64242 1 1 3 1:36 PM CDT DERMATOPATHOLOGY LABORATORY Embedded Images 3 1:36 PM CDT DERMATOPATHOLOGY LABORATORY Pathology/Cytology TISSUE SPECIMEN FROM SKIN / Unknown 10/18/2022 3:33 AM CDT 10/19/2022 12:03 PM CDT Miscellaneous samples (specimen) TISSUE SPECIMEN FROM SKIN / Unknown 10/18/2022 3:33 AM CDT 10/19/2022 12:03 PM CDT Ann Smith DO LAB - PATHOLOGY/C YTOLOGY ORDERABLES DERMATOPATHOLOGY LABORATORY [facility] - Department of Dermatology [address], [address] [phone] * CBC W AUTO DIFFERENTIAL (04/16/2015 2:11 PM CDT) Only the most recent of7 resultswithin the time period is included. WBC 6.6 3.5 - 10.5 10 3/uL [facility] RBC 4.44 3.90 - 5.00 10 6/uL [facility] Hemoglobin 13.9 12.0 - 15.5 g/dL [facility] Hematocrit 40.2 35.0 - 45.0 % [facility] MCV 90.5 81.0 - 97.0 fL [facility] MCH 31.3 28.0 - 34.0 pg [facility] MCHC 34.6 32.0 - 36.0 g/dL [facility] Platelet Count 196 150 - 400 10 3/uL [facility] RDW-SD 43.0 36.0 - 50.0 fL [facility] RDW-CV 13.0 11.2 - 14.8 % [facility] MPV 9.9 9.3 - 12.8 fL [facility] Neutrophils % 58.4 35.0 - 70.0 % [facility] Lymphocytes % 32.3 19.7 - 55.1 % [facility] Monocytes % 7.0 3.0 - 15.0 % [facility] Eosinophils % 2.0 0.0 - 6.0 % [facility] Basophil % 0.3 0.0 - 1.5 % [facility] Neutrophils Absolute 3.8 1.6 - 7.0 10 3/uL [facility] Lymphocyte Absolute 2.1 0.8 - 2.9 10 3/uL [facility] Monocytes Absolute 0.46 0.14 - 0.66 10 3/uL [facility] Eosinophils Absolute 0.13 0.00 - 0.22 10 3/uL [facility] Basophils Absolute 0.02 0.00 - 0.06 10 3/uL [facility] Immature Granulocytes % 0.2 0.0 - 1.0 % [facility] Blood specimen (specimen) BLOOD SPECIMEN / Unknown 04/16/2015 2:11 PM CDT 04/16/2015 2:19 PM CDT Raj Nolasco MD LAB - HEMATOLOGY O RDERABLES [facility] [address] [phone] * (ABNORMAL) COMPREHENSIVE METABOLIC PANEL (04/16/2015 2:11 PM CDT) Only the most recent of5 resultswithin the time period is included. BUN 17 7 - 26 mg/dL [facility] Creatinine 0.7 0.6 - 1.2 mg/dL [facility] Sodium 143 136 - 145 mmol/L [facility] Potassium 3.9 3.5 - 4.5 mmol/L [facility] Chloride 107 98 - 107 mmol/L [facility] CO2 29 22 - 29 mmol/L [facility] Glucose 101 70 - 115 mg/dL [facility] Calcium 9.7 8.4 - 10.2 mg/dL [facility] Protein Total 6.7 6.0 - 8.3 g/dL [facility] Albumin 3.5 3.4 - 5.0 g/dL [facility] Bilirubin Total 0.6 0.2 - 1.2 mg/dL [facility] Alkaline Phosphatase 85 40 - 150 Units/L [facility] ALT 13 0 - 55 Units/L [facility] AST 15 5 - 34 Units/L [facility] Anion Gap 11 8 - 18 [facility] BUN/Creatinine Ratio 24(H) 7 - 23 [facility] Osmolality Calculated 283 270 - 300 mOsm/kg [facility] Albumin/Globulin Ratio 1.1 1.1 - 2.3 [facility] eGFR >60 >60 mL/min/1.7 3 m2 [facility] Blood specimen (specimen) BLOOD SPECIMEN / Unknown 04/16/2015 2:11 PM CDT 04/16/2015 2:19 PM CDT Raj Nolasco MD LAB - CHEMISTRY OR DERABLES [address] [phone] * LDH BLOOD (04/16/2015 2:11 PM CDT) Only the most recent of4 resultswithin the time period is included. LDH Total 168 125 - 243 Units/L [facility] Blood specimen (specimen) BLOOD SPECIMEN / Unknown 04/16/2015 2:11 PM CDT 04/16/2015 2:19 PM CDT Raj Nolasco MD LAB - CHEMISTRY OR DERABLES [address] [phone] * CT CHEST ABDOMEN PELVIS W CONT (04/15/2015 8:57 AM CDT) Anatomical Region Laterality Modality Chest, Abdomen, Pelvis Other Impressions 04/15/2015 4:44 PM CDT IMPRESSION: 1. No adenopathy is seen within the chest, abdomen, or pelvis by CT size criteria to suggest recurrent or residual lymphoma. 2. Small gastric diverticulum and nonobstructing left renal calculus are noted. Dictated by Madison Mcdonald M.D. (residential fee appraiser). I, Dr. FLAKO HERRERA M.D. have personally reviewed and interpreted this examination/study. This report was electronically signed by FLAKO HERRERA M.D. on 04/15/2015 4:44 PM . Narrative 04/15/2015 4:44 PM CDT EXAMINATION: Computed tomography (CT) of the chest, abdomen, and pelvis with contrast HISTORY: Followup follicular lymphoma TECHNIQUE: CT of the chest, abdomen, and pelvis was performed following the uneventful administration of 100 mL of Omnipaque 350 intravenous contrast according to standard protocol. COMPARISON: Comparison is made with a PET/CT dated 04/17/2014. FINDINGS: Chest: The lungs are free of focal consolidations. There is a small 3 mm left upper lobe pulmonary nodule which is unchanged when compared to a chest CT dated 07/15/2008 and is likely benign. Additional small scattered 2-3 mm pulmonary nodules also appear stable and likely benign. There is no pleural effusion or pneumothorax. There is no supraclavicular, axillary, mediastinal, or hilar lymphadenopathy. The left-sided aortic arch is normal in course and caliber. The pulmonary arteries are normal in course and caliber. The remaining enhanced vascular structures are normal. The heart size is normal. There is no pericardial effusion. Abdomen and Pelvis: The liver enhances homogenously. No focal intrahepatic lesion is seen. The gallbladder is normal without evidence of gallstones or gallbladder wall thickening. There is no intrahepatic or extrahepatic biliary ductal dilatation. A splenule is present posteriorly. The spleen and pancreas are normal. The adrenal glands and kidneys are normal. There is a nonobstructing 3 mm left renal calculus. There is no hydronephrosis or hydroureter. A gastric diverticulum is seen arising from the gastric fundus. The small and large bowel are normal in course and caliber without evidence of bowel wall thickening or bowel obstruction. There is mild fat stranding in the mid mesentery surrounding mesenteric vessels (series 3, image 129). This is unchanged when compared to the prior PET/CT dated 04/17/2014. Subcentimeter mesenteric lymph nodes are present. No retroperitoneal lymphadenopathy is seen. The abdominal aorta is normal in course and caliber. The remaining enhanced abdominal vascular structures are normal. There is motion artifact in the pelvis. The urinary bladder is normal. There is no free fluid in the pelvis. Osseous: Bone windows demonstrate no suspicious lytic or blastic lesion. Procedure Note Flako Herrera MD - 09/16/2017 EXAMINATION: Computed tomography (CT) of the chest, abdomen, and pelviswith contrast HISTORY: Followup follicular lymphoma TECHNIQUE: CT of the chest, abdomen, and pelvis was performed followingthe uneventful administration of 100 mL of Omnipaque 350 intravenouscontrast according to standard protocol. COMPARISON: Comparison is made with a PET/CT dated 04/17/2014. FINDINGS: Chest: The lungs are free of focal consolidations. There is a small 3 mm leftupper lobe pulmonary nodule which is unchanged when compared to a chest CTdated 07/15/2008 and is likely benign. Additional small scattered 2-3 mmpulmonary nodules also appear stable and likely benign. There is no pleural effusion or pneumothorax. There isno supraclavicular, axillary, mediastinal, or hilar lymphadenopathy. The left-sided aortic arch is normal in course and caliber. The pulmonaryarteries are normal in course and caliber. The remaining enhanced vascularstructures are normal. The heart size is normal. There is no pericardialeffusion. Abdomen and Pelvis: The liver enhances homogenously. No focal intrahepatic lesion is seen. Thegallbladder is normal without evidence of gallstones or gallbladder wallthickening. There is no intrahepatic or extrahepatic biliary ductaldilatation. A splenule is present posteriorly. The spleen and pancreas are normal. The adrenal glands andkidneys are normal. There is a nonobstructing 3 mm left renal calculus.There is no hydronephrosis or hydroureter. A gastric diverticulum is seen arising from the gastric fundus. The smalland large bowel are normal in course and caliber without evidence of bowelwall thickening or bowel obstruction. There is mild fat stranding in themid mesentery surrounding mesenteric vessels (series 3, image 129). This is unchanged when comparedto the prior PET/CT dated 04/17/2014. Subcentimeter mesenteric lymph nodesare present. No retroperitoneal lymphadenopathy is seen. The abdominalaorta is normal in course and caliber. The remaining enhanced abdominal vascular structures are normal.There is motion artifact in the pelvis. The urinary bladder is normal. There is no free fluid in the pelvis. Osseous: Bone windows demonstrate no suspicious lytic or blastic lesion. IMPRESSION IMPRESSION: 1. No adenopathy is seen within the chest, abdomen, or pelvis by CT sizecriteria to suggest recurrent or residual lymphoma. 2. Small gastric diverticulum and nonobstructing left renal calculus arenoted. Dictated by Madison Mcdonald M.D. (residential fee appraiser). Dr. FLAKO Becerra M.D. have personally reviewed and interpreted thisexamination/study. This report was electronically signed by FLAKO HERRERA M.D. on04/15/2015 4:44 PM . Raj Nolasco MD CT ORDERABLES * CREATININE BLOOD - POCT (IP) [facility] (04/15/2015) Creatinine POCT 0.70 0.3 - 1.3 mg/dL [facility] eGFR POCT 60 60 ml/min [facility] 04/15/2015 Raj Nolasco MD LAB - POINT OF CAR E ORDERABLES [facility] * PET CT WHOLE BODY (04/17/2014 11:01 AM CDT) Only the most recent of3 resultswithin the time period is included. Anatomical Region Laterality Modality Other Impressions 04/17/2014 1:18 PM CDT IMPRESSION: No new FDG avid lesions represent residual or recurrent disease. This report was dictated by Maynor Zamorano MD (residential fee appraiser) This report was approved by Maynor Zamorano M.D. on 04/17/2014 11:[address] ERIKA Becerra M.D. have personally reviewed and interpreted this examination/study. This report was electronically signed by ERIKA VALENZUELA M.D. on 04/17/2014 1:18 PM . Narrative 04/17/2014 1:18 PM CDT Procedure: PET/CT Study. Referring Physician: Dr. 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 The patient is status post 6 cycles of R- CMOPP, autotransplant in 2007. Prior PET/CT of 04/10/2013 revealed no FDG avid lesions to suggest residual or recurrent disease. Evaluate for subsequent treatment strategy. TECHNIQUE: 9.67 mCi of F-18 FDG by IV in the right hand peripheral IV. PET/CT image acquisition from top of the head to the feet after approximately 60 min. Postinjection with the CT being low-dose, noncontrast. No separate report for the CT was generated since it was of nondiagnostic quality. Blood glucose level at the time of injection was 97 mg/dl. FINDINGS: Comparison is made with the prior PET/CT exam dated 04/10/2013. Head and neck: There is normal parenchymal FDG uptake in the brain. No focal lesion is identified in the brain. The paranasal sinuses are patent. There is FDG uptake in the pharyngeal and lingual tonsils bilaterally which appears unchanged when compared with the prior exam, likely benign. There is also mild uptake in the salivary glands. The thyroid gland appears normal. Previously noted mildly prominent cervical lymph nodes demonstrating mild uptake are stable when compared to the prior exam. Chest: No focal consolidation, pleural effusion, or pneumothorax is identified in the lungs. No FDG avid nodule is noted. The heart is normal in size. There is no pericardial effusion. The left aortic arch is normal. The pulmonary artery is normal in course and caliber. Abdomen and pelvis: Again, there is mild FDG uptake in the fundus of the stomach which may be related to gastritis. No focal liver lesion is identified. The gallbladder appears normal. The pancreas is also normal. The bilateral kidneys are unremarkable with no evidence of hydronephrosis or hydroureter. A small splenule is noted adjacent to the spleen. There is mild diffuse radiotracer uptake noted in the bowel loops, likely physiologic. Diverticuli are identified in the white colon with no evidence of acute diverticulitis. The urinary bladder appears normal. The uterus is not well seen. Subcentimeter mesenteric lymph nodes are identified. Musculoskeletal: No FDG avid osseous lesions are identified. There is mild uptake in the extensor compartments of the bilateral forearms. Procedure Note Erika Valenzuela MD - 09/16/2017 Procedure: PET/CT Study. Referring Physician: Dr. Raj Nolasco HISTORY: The patient is a 53-year-old female with history of CD10 positivestage IVB follicular lymphoma grade II/III. The patient is status post 6cycles of R-CMOPP, autotransplant in 2007. Prior PET/CT of 04/10/2013revealed no FDG avid lesions to suggest residual or recurrent disease. Evaluate for subsequent treatmentstrategy. TECHNIQUE: 9.67 mCi of F-18 FDG by IV in the right hand peripheral IV.PET/CT image acquisition from top of the head to the feet afterapproximately 60 min. Postinjection with the CT being low-dose,noncontrast. No separate report for the CT was generated since it was of nondiagnostic quality. Blood glucose level atthe time of injection was 97 mg/dl. FINDINGS: Comparison is made with the prior PET/CT exam dated1. Head and neck: There is normal parenchymal FDG uptake in the brain. Nofocal lesion is identified in the brain. The paranasal sinuses are patent.There is FDG uptake in the pharyngeal and lingual tonsils bilaterallywhich appears unchanged when compared with the prior exam, likely benign. There is also mild uptake in thesalivary glands. The thyroid gland appears normal. Previously noted mildlyprominent cervical lymph nodes demonstrating mild uptake are stable whencompared to the prior exam. Chest: No focal consolidation, pleural effusion, or pneumothorax isidentified in the lungs. No FDG avid nodule is noted. The heart is normalin size. There is no pericardial effusion. The left aortic arch is normal.The pulmonary artery is normal in course and caliber. Abdomen and pelvis: Again, there is mild FDG uptake in the fundus of thestomach which may be related to gastritis. No focal liver lesion isidentified. The gallbladder appears normal. The pancreas is also normal.The bilateral kidneys are unremarkable with no evidence of hydronephrosis or hydroureter. A small splenule isnoted adjacent to the spleen. There is mild diffuse radiotracer uptakenoted in the bowel loops, likely physiologic. Diverticuli are identifiedin the white colon with no evidence of acute diverticulitis. The urinary bladder appears normal. The uterus isnot well seen. Subcentimeter mesenteric lymph nodes are identified. Musculoskeletal: No FDG avid osseous lesions are identified. There is milduptake in the extensor compartments of the bilateral forearms. IMPRESSION IMPRESSION: No new FDG avid lesions represent residual or recurrent disease. This report was dictated by Maynor Zamorano MD (residential fee appraiser) This report was approved by Maynor Zamorano M.D. on 04/17/2014 11:49 AM. I, Dr. ERIKA VALENZUELA M.D. have personally reviewed and interpreted thisexamination/study. This report was electronically signed by ERIKA VALENZUELA M.D. on 04/17/20141:18 PM . Raj Nolasco MD [place] ORDERABLES * GLUCOSE - POINT OF CARE (AMB) [facility] (04/17/2014 9:33 AM CDT) Only the most recent of6 resultswithin the time period is included. Erika Valenzuela MD LAB - POINT OF CARE ORDERABLES [facility] RADIOLOGY * CYTOMEGALOVIRUS DNA RT-PCR QUANT (04/09/2012 1:36 PM CDT) Only the most recent of2 resultswithin the time period is included. Interpretation CMV PCR Quantitative () [facility] Comment: SPECIMEN: 1 ml Plasma Test: Cytomegalovirus Detection (Quantitative) RESULT Not Detected Reference Range Not Detected INTERPRETATION The quantitative CMV DNA PCR determination was performed and is reported in IU/ml. CMV DNA, if present was below the level of detection. COMMENT The CMV DNA analysis utilized real-time PCR, and is reported as Not Detected/Detected/IU/ml (quantity), or > 300,000 IU/ml. The analytic sensitivity of the assay is 170 IU/ml (95% of samples with this CMV DNA level were detected however values < 170 IU/ml may be sporadically detected). Specimens with CMV detected but less than 170 IU/ml are reported as Detected (< 170 IU/ml). The linear range is from 170 IU/ml to 300,000 IU/ml. Values greater than 300,000 IU/ml are reported as > 300,000 IU/ml. The detection/quantitation of CMV DNA in serum, plasma, or urine is based on the isolation of CMV DNA followed by real-time PCR in the presence of a reference standard DNA. The standard ensures that DNA was isolated, and that no general significant inhibitors of the real-time PCR process were present. Absolute CMV values or breakpoints for symptomatic disease have not been established and appear to be different between patient populations and laboratories. Therefore, it is important to monitor patients and to follow rises and/or falls in the level of CMV in multiple blood specimens. Test performed at [facility], [address] [place] [id number] This test was developed and its performance characteristics determined by the [facility] Diagnostic Laboratory at [facility]. It has not been cleared or approved by the U.S. Food and Drug Administration. The FDA has determined that such clearance or approval is not necessary. This test is used for clinical purposes. It should not be regarded as investigational or for research. This laboratory is certified under the Clinical Laboratory Improvement Amendments of 1988 (CLIA-88) as qualified to perform high complexity clinical laboratory testing. This case has been personally reviewed and interpreted by the attending (teaching) pathologist. Final Diagnosis performed by Luciano Martinez MD, PhD. Electronically signed 04/10/2012 04/09/2012 1:36 PM CDT 04/09/2012 2:02 PM CDT Juan Fields MD LAB - MICROBIOLOGY Jolene BERGER Performing Organization Address [facility]/ZIP Co de Phone Number [address] [phone] * IGM BLOOD (04/09/2012 1:36 PM CDT) Only the most recent of2 resultswithin the time period is included. IgM 45 22 - 293 mg/dL [facility] 04/09/2012 1:36 PM CDT 04/09/2012 1:47 PM CDT Juan Fields MD LAB - CHEMISTRY PRABHA HAN Performing Organization Address City/[facility] [place]/ZIP Co de Phone Number [address] [phone] * IGG BLOOD (04/09/2012 1:36 PM CDT) Only the most recent of2 resultswithin the time period is included. IgG 668 540 - 1822 mg/dL [facility] 04/09/2012 1:36 PM CDT 04/09/2012 1:47 PM CDT Juan Fields MD LAB - CHEMISTRY PRABHA HAN Performing Organization Address [facility] [place]/ZIP Co de Phone Number [address] [phone] * (ABNORMAL) IGA BLOOD (04/09/2012 1:36 PM CDT) Only the most recent of2 resultswithin the time period is included. IgA 12(L) 87 - 534 mg/dL [facility] 04/09/2012 1:36 PM CDT 04/09/2012 1:47 PM CDT Juan Fields MD LAB - CHEMISTRY PRABHA HAN Performing Organization Address City/[facility] [place]/ZIP Co de Phone Number [address] [phone] * RITUXAN SENSITIVITY (CD20) (04/07/2011 1:04 PM CDT) Pathologist [facility] Flow Cytometry Results Specimen: Blood () [facility] Comment: Specimen: Blood Reason for test: Follicular lymphoma, S/P auto txp Flow Cytometry Results: Differential Result Comment WBC COUNT/uL 5600 %LYMPHOCYTES 30 LYMPH COUNT/uL 1680 Cell Region A: Lymphocytes Surface Marker Result (%) CD3 61 CD4 33 CD8 40 CD20 14 CD19 14 CD45 98 CD56 10 Peripheral Blood Lymphocyte Adult Normal Reference Range (%) except CD4/CD8 CD1 0 CD24 11-19 CD2 74-94 CD25 5-17 CD3 54-94 CD33 0-7 CD4 40-56 CD34 0-3 CD4/CD8 (0.7-2.7) CD38 15-55 CD5 57-93 CD45 97-100 CD7 58-82 CD56 6-26 CD8 17-45 CD57 0-26 CD10 1-9 CD117 0 CD11b 14-42 CD138 0-1 CD11c 4-14 IgG 0-7 CD13 0-4 IgM 4-16 CD14 0-11 IgA 2-6 CD15 0-1 IgD 3-15 CD16 0-23 [place] 3-12 CD19 8-24 Lambda 3-7 CD20 7-17 HLA-DR 9-25 CD23 2-16 TdT 0 Test performed at [facility], [address] [facility] [address] [facility] [place] [address] This test was developed and its performance characteristics determined by The [facility]. It has not been cleared by the U.S. Food and Drug Administration. The FDA has determined that such clearance or approval is not necessary. This test is used for clinical purposes. It should not be regarded as investigational or for research. This laboratory is regulated under the Clinical Laboratory Improvement Amendments of 1998 (CLIA) as qualified to perform high complexity clinical testing. By law [place], CD4 lymphocyte counts on patients with HIV infection must be reported by the physician to the [facility] authority. Interpretation: Flow cytometric analysis of the peripheral blood demonstrates a WBC count of 5,600/ul with 30% of the cells (1,680/ul) in the small lymphocyte region. In the small lymphocyte region, 61% are T-cells (normal), and 10% of cells express the natural killer cell antigen CD56. The B-cell markers CD19 and CD20 are detected on 14% and 14% of the cells, respectively. 33% and 40% of cells express CD4 (decreased), and CD8 (normal), respectively. LG/HW/pj This case has been personally reviewed and interpreted by the attending (teaching) pathologist. Final Diagnosis performed by Luciano Martinez MD, PhD. Electronically signed 04/08/2011 04/07/2011 1:04 PM CDT 04/07/2011 1:35 PM CDT Juan Fields MD LAB - CHEMISTRY PRABHA HAN [facility] [address] [place] [address], [facility] [phone] * BCL-2 GENE TRANSLOCATION PANEL (04/07/2011 1:04 PM CDT) jean2/RIO,t(14;18) EARL () [facility] Comment: SPECIMEN: 5 ml Peripheral Blood Test: PCR/Gel Electrophoresis for BCL-2/Immunoglobulin Heavy Chain Fusion Gene RESULT Primer 1/Primer 2 Result mbr-1a/mbr-1b Not Detected mbr-2a/mbr-2b Not Detected mcr-a/mcr-b Not Detected Reference Range: Not Detected DNA was isolated from the specimen and analyzed by PCR/gel electrophoresis to detect a bcl-2/immunoglobulin heavy chain fusion gene (involving either the mbr [2 reactions] or mcr portion of the bcl-2 gene). No fusion gene was detected. Isolation of amplifiable human DNA was confirmed by the successful amplification of a normal human sequence. The limit of detection of this assay is such that a population of cells with a detectable rearrangement comprising greater than or equal to 0.1% of the total number of cells would be detected. INTERPRETATION This analysis fails to identify a population of lymphocytes within the specimen with a bcl-2/immunoglobulin heavy chain fusion gene and hence fails to provide evidence of involvement by a malignant B-lineage neoplasm. Correlation with the available clinical, morphologic, immunophenotypic, and cytogenetic data is suggested. Test performed at [facility], [address] [place] [address] This test was developed and its performance characteristics determined by the DNA Diagnostic Laboratory at [facility]. It has not been cleared or approved by the U.S. Food and Drug Administration. The FDA has determined that such clearance or approval is not necessary. This test is used for clinical purposes. It should not be regarded as investigational or for research. This laboratory is certified under the Clinical Laboratory Improvement Amendments of 1988 (CLIA-88) as qualified to perform high complexity clinical laboratory testing. This case has been personally reviewed and interpreted by the attending (teaching) pathologist. Final Diagnosis performed by Luciano Martinez MD, PhD. Electronically signed 04/12/2011 04/07/2011 1:04 PM CDT 04/07/2011 1:35 PM CDT Juan Fields MD LAB - HEMATOLOGY ORD ERABLES [address] [phone] * PATHOLOGY/GENETICS HISTORICAL-ONBASE (07/25/2007) 07/25/2007 Narrative [facility] - 03/07/2013 10:35 AM CDT Historical Provider LAB - CHEMISTRY O RDERABLES [facility] [address] [place] [address], [facility] Care Teams Supervisor Locomotive Relationship Specialty Start Date End Date Sally Wood MD [address] [place] [phone] PCP - General Family Medicine 08/14/18
--- OUTSIDE RECORDS SUMMARY | 2024-08-08 10:55 | XMS_ITS | Referral Summary ---
Author Organization [facility] Address [address] [place] [address] Care Team Providers Care Convolute Tube Winder Name Role Phone Sally Wood MD Primary Care Provider [phone] Source Comments [facility],non-owned Affiliates and Associated Physician Practices is amultiple site organization consisting of ambulatory clinics and hospital sitesin [place], [place], [place] and [place]. This disclosure is being madepursuant to the Care Everywhere program and may not contain all information available regarding this patient. Last updated 18.[facility] [place] Social History Tobacco Use Types Packs/Day Years [...] Mass Index - - Plan of Treatment Not on file Care Teams Convolute Tube Winder Relationship Specialty Start Date End Date Sally Wood MD [address] [place] [address] [address] [place] [phone] PCP - General Family Medicine 08/14/18
--- OUTSIDE RECORDS SUMMARY | 2024-08-08 10:55 | XMS_ITS | Encounter Summary ---
Author Organization [facility] Address [address] [facility] [place] [address] Care Team Providers Care Gas Technician Name Role Phone Sally Wood MD Primary Care Provider Encounter Details Date Type Department Care Team (Late st Contact Info) Description 01/24/2019 Lab Requisition [facility] Care DermPath Lab [address] [facility] [place] [address] Ann Smith DO [address] [facility] 3 [place] [address] Social History Tobacco Use Types Packs/Day Years Used Date Smoking Tobacco: Never Assessed Sex and Gender Information Value Date Recorded Sex Assigned at Not on file Gender Identity Not on file Sexual Orientation Not on file documented as of this encounter Plan of Treatment Not on file documented as of this encounter Procedures Procedure Name Priority Date/Time Associated Diagnosis Comments DERMATOPATHOLOGY Routine 01/23/2019 12:0 0 AM CDT documented in this encounter Results * DERMATOPATHOLOGY (01/23/2019 12:00 AM CDT) Case Report Dermatopathology Report Case: [id number] Authorizing Provider: Ann Smith DO Collected: 01/23/2019 12:00 AM Pathologist: Talya Gómez MD Received: 01/24/2019 06:36 AM Specimen: Skin, right back 9 1:15 PM CDT DERMATOPATHOLOGY LABORATORY Final Diagnosis Specimen A. SKIN, right back: LENTIGINOUS MELANOCYTIC NEVUS, JUNCTIONAL TYPE, IRRITATED (JUNCTIONAL MELANOCYTIC NEVUS WITH ARCHITECTURAL DISORDER) (D22.5) 1:15 PM CDT DERMATOPATHOLOGY LABORATORY Clinical History R/O atypia. 1:15 PM CDT DERMATOPATHOLOGY LABORATORY Gross Description Specimen A: Received is one formalin filled container labeled with the patient's name and designated right back. The specimen consists of a shave measuring 2f0g0ig. Jar 0. 1:15 PM CDT DERMATOPATHOLOGY LABORATORY Microscopic Description Specimen A. SKIN, right back: This is a junctional nevus. There is melanin pigment in the stratum corneum. There is architectural disorder characterized by a lentiginous proliferation of melanocytes between irregular nests of cells along the dermal-epidermal junction. There is underlying fibroplasia of the papillary dermis. (Junctional Jacob's Nevus or Junctional Dysplastic Nevus) 1:15 PM CDT DERMATOPATHOLOGY LABORATORY Disclaimer An external and internal positive and negative controls are appropriate for the histochemical, immunohistochemical and immunofluorescence stain(s) in this case (if any), except where stated explicitly. The performance characteristics of the stain(s) cited in this report were developed and its performance characteristic determined by the Dermatopathology Laboratory at [facility], directed by Dr. Angelika Grier. These tests need not be, and therefore are not, approved by the [place] Food and Drug Administration. The tests are used for clinical purposes. Billing Codes Specimen Charges Stain Charges 58857 1 1:15 PM CDT DERMATOPATHOLOGY LABORATORY Embedded Images 1:15 PM CDT DERMATOPATHOLOGY LABORATORY Pathology/Cytolog y TISSUE SPECIMEN FROM SKIN / Unknown 01/23/2019 01/24/2019 6:36 AM CDT Ann Smith DO LAB - PATHOLOGY/C YTOLOGY ORDERABLES DERMATOPATHOLOGY LABORATORY [facility] - Department of Dermatology [facility] [facility], 5th Floor Lab B [address] [phone] documented in this encounter Visit Diagnoses Not on filedocumented in this encounter Care Teams Gas Technician Relationship Specialty Start Date End Date Sally Wood MD [address] [place] [phone] PCP - General Family Medicine 08/14/18 documented as of this encounter
--- OUTSIDE RECORDS SUMMARY | 2024-08-08 10:55 | XMS_ITS | Encounter Summary ---
Author Organization [facility] Address [address] [place] [address] Care Team Providers Care Architect Internship Name Role Phone Sally Wood MD Primary Care Provider Encounter Details Date Type Department Care Team (Late st Contact Info) Description 08/15/[address] [facility] DermPath Lab [address] [facility] [place] [address] Ann Smith DO [address] [facility] 3 [place] [address] Social History Tobacco Use Types Packs/Day Years Used Date Smoking Tobacco: Never Assessed Sex and Gender Information Value Date Recorded Sex Assigned at Not on file Gender Identity Not on file Sexual Orientation Not on file documented as of this encounter Plan of Treatment Not on file documented as of this encounter Procedures Procedure Name Priority Date/Time Associated Diagnosis Comments DERMATOPATHOLOGY Routine 08/14/2019 12:0 0 AM INSOLE DOUBLER documented in this encounter Results * DERMATOPATHOLOGY (08/14/2019 12:00 AM INSOLE DOUBLER) Case Report Dermatopathology Report Case: [id number] Authorizing Provider: Ann Smith DO Collected: 08/14/2019 12:00 AM Ordering Location: [facility] DermPath Lab Received: 08/15/2019 09:32 AM Pathologist: Noah Grier MD Specimen: Skin, right upper back 0 12:30 PM INSOLE DOUBLER DERMATOPATHOLOGY LABORATORY Final Diagnosis Specimen A. 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 The specimen consists of a shave biopsy measuring 7x5x1 mm. Jar 0. 0 12:30 PM [facility] DERMATOPATHOLOGY LABORATORY Microscopic Description Specimen A. SKIN, right upper back: There are scattered dyskeratotic keratinocytes and vacuolar alteration along the basal cell layer. In addition, an underlying band-like infiltrate composed mostly of lymphocytes focally obscures the dermal-epidermal junction. COMMENT: The histologic findings can be seen in lichen planus if this represents a diffuse process; however, if this is a single lesion then the findings are consistent with a lichen planus-like keratosis. 0 12:30 PM [facility] DERMATOPATHOLOGY LABORATORY Disclaimer An external and internal positive and negative controls are appropriate for the histochemical, immunohistochemical and immunofluorescence stain(s) in this case (if any), except where stated explicitly. The performance characteristics of the stain(s) cited in this report were developed and its performance characteristic determined by the Dermatopathology Laboratory at [facility], directed by Dr. Angelika Grier. These tests need not be, and therefore are not, approved by the [place] Food and Drug Administration. The tests are used for clinical purposes. Billing Codes Specimen Charges Stain Charges 19365 1 0 12:30 PM [facility] DERMATOPATHOLOGY LABORATORY Embedded Images 0 12:30 PM [facility] DERMATOPATHOLOGY LABORATORY Pathology/Cytolog y TISSUE SPECIMEN FROM SKIN / Unknown 08/14/2019 08/15/2019 9:32 AM INSOLE DOUBLER Ann Smith DO LAB - PATHOLOGY/C YTOLOGY ORDERABLES DERMATOPATHOLOGY LABORATORY [facility] - Department of Dermatology [address] [place] [address], 5th Floor Lab [address] [phone] documented in this encounter Visit Diagnoses Not on filedocumented in this encounter Care Teams Architect Internship Relationship Specialty Start Date End Date Sally Wood MD [address] [place] [phone] PCP - General Family Medicine 08/14/18 documented as of this encounter
[2024-08-08 11:51] LABS: Influenza A QL RT-PCR Positive (Negative); Influenza B QL RT-PCR Negative (Negative); RSV RNA, RT-PCR Negative (Negative); SARS-CoV-2 RNA PCR Negative (Negative)
== END 2024-08-08 10:33 | disposition home or self-care (01) ==
PROVIDERS: PCP Family Medicine; Visit Provider Family Medicine
DX: J06.9 Acute upper respiratory infection, unspecified (principal)
CPT/HCPCS: 87637

== ENCOUNTER 2024-09-12 09:13 | Outpatient (CLI) | payer BC, SELFPAY ==
--- NOTE | ~2024-09-12 | MM_ITS ---
EXAMINATION: MM screening [facility] BI w kellie HISTORY: Screening TECHNIQUE: Craniocaudal and mediolateral oblique 3-D tomosynthesis images were obtained and synthetic 2-D images were generated. CAD analysis was submitted and interpreted. COMPARISON: 09/11/2023 and dating back to 03/28/2020 BREAST PARENCHYMAL COMPOSITION: There are scattered areas of fibroglandular density. FINDINGS: Punctate calcifications are detected bilaterally, stable and benign in appearance. Stable parenchymal pattern without suspicious microcalcifications, architectural distortion, discrete masses or significant asymmetry. IMPRESSION: 1. No mammographic evidence of malignancy. 2. Recommend routine screening mammography in one year. BI-RADS Category 2: Benign finding(s). Reviewed, dictated and finalized at location A.
--- OUTSIDE RECORDS SUMMARY | 2024-09-12 09:47 | XMS_ITS | Clinical Summary ---
Author Organization [facility] Address [address] [place] [address] Care Team Providers Care Refrigerator Tester Name Role Phone Sally Wood MD Primary Care Provider [phone] Source Comments [facility],non-owned Affiliates and Associated Physician Practices is amultiple site organization consisting of ambulatory clinics and hospital sitesin [place], [place], [place] and [place]. This disclosure is being madepursuant to the Care Everywhere program and may not contain all information available regarding this patient. Last updated 18.[facility] Social History Tobacco Use Types Packs/Day Years [...] to complete this topic MENINGOCOCCAL (Group B) VACC INE SHARED DECISION-MAKING Aged Out No longer eligibl e based on patient's age to complete this topic MENINGOCOCCAL GROUPS A/C/Y/W VACCINE Aged Out No longer eligible b ased on patient's age to complete this topic PNEUMOCOCCAL VACCINE Aged Out No long er eligible based on patient's age to complete this topic Care Teams Refrigerator Tester Relationship Specialty Start Date End Date Sally Wood MD [address] [place] [address] [address] [place] [phone] PCP - General Family Medicine 08/14/18
--- OUTSIDE RECORDS SUMMARY | 2024-09-12 09:47 | XMS_ITS | Encounter Summary ---
Author Organization [facility] Address [address] [facility] [place] [address] Care Team Providers Care Dietary Aide Cook Name Role Phone Sally Wood MD Primary Care Provider [phone] Encounter Details Date Type Department Care Team (Late st Contact Info) Description 08/15/2019 Lab Requisition [facility] DermPath Lab [address] [facility] [place] [address] Ann Smith DO [address] [facility] 3 [place] [address] Social History Tobacco Use Types Packs/Day Years [...] Comments DERMATOPATHOLOGY Routine 08/14/2019 12:0 0 AM WORKERS COMPENSATION CLAIMS EXAMINER documented in this encounter Results * DERMATOPATHOLOGY (08/14/2019 12:00 AM WORKERS COMPENSATION CLAIMS EXAMINER) Case Report Dermatopathology Report Case: [id number] Authorizing Provider: Ann Smith DO Collected: 08/14/2019 12:00 AM Ordering Location: [facility] DermPath Lab Received: 08/15/2019 09:32 AM Pathologist: Noah Grier MD Specimen: Skin, right upper back 0 12:30 PM WORKERS COMPENSATION CLAIMS EXAMINER DERMATOPATHOLOGY LABORATORY Final Diagnosis Specimen A. 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 The specimen consists of a shave biopsy measuring 7x5x1 mm. Jar 0. 0 12:30 PM [facility] DER[facility] Microscopic Description Specimen A. SKIN, [...] a lichen planus-like keratosis. 0 12:30 PM [facility] DER[facility] LABORATORY Disclaimer An external and internal positive and negative controls are appropriate for the histochemical, immunohistochemical and immunofluorescence stain(s) in this case (if any), except where stated explicitly. The performance characteristics of the stain(s) cited in this report were developed and its performance characteristic determined by the Dermatopathology Laboratory at [facility], directed by Dr. Angelika Grier. These tests need not be, and therefore are not, approved by the [place] Food and Drug Administration. The tests are used for clinical purposes. Billing Codes Specimen Charges Stain Charges 77664 1 0 12:30 PM [facility] DERMATOPATH[facility] LABORATORY Embedded Images 0 12:30 PM [facility] DERMAT[facility] LABORATORY Pathology/Cytolog y TISSUE SPECIMEN FROM SKIN / Unknown 08/14/2019 08/15/2019 9:32 AM WORKERS COMPENSATION CLAIMS EXAMINER Ann Smith DO LAB - PATHOLOGY/C YTOLOGY ORDERABLES DERMATOPATHOLOGY LABORATORY [facility] - Department of Dermatology [address] [place] [address], 5th Floor Lab B [address] [phone] documented in this encounter Visit Diagnoses Not on filedocumented in this encounter Care Teams Dietary Aide Cook Relationship Specialty Start Date End Date Sally Wood MD [address] [place] [phone] PCP - General Family Medicine 08/14/18 documented as of this encounter
--- OUTSIDE RECORDS SUMMARY | 2024-09-12 09:47 | XMS_ITS | Encounter Summary ---
Author Organization [facility] Address [address] [facility] [place] [address] Care Team Providers Care Resource Coordinator Name Role Phone Sally Wood MD Primary Care Provider Encounter Details Date Type Department Care Team (Late st Contact Info) Description 01/24/2019 Lab Requisition [facility] Care DermPath Lab [address] [facility], [place] [address] Ann Smith DO [address] [facility] 3 [place] [address] Social History Tobacco Use Types Packs/Day Years [...] AM CDT) Case Report Dermatopathology Report Case: [id number] Authorizing Provider: Ann Smith DO Collected: 01/23/2019 [...] The specimen consists of a shave measuring 8p1l4jg. Jar 0. 1:15 PM CDT DERMATOPATHOLOGY LABORATORY [...] characteristic determined by the Dermatopathology Laboratory at [facility], directed by Dr. Angelika Grier. These tests need not be, and therefore are not, approved by the [place] Food and Drug Administration. The tests are used for clinical purposes. Billing Codes Specimen Charges Stain Charges 32048 1 1:15 PM CDT DERMATOPATHOLOGY LABORATORY Embedded Images 1:15 PM CDT DERMATOPATHOLOGY LABORATORY Pathology/Cytolog y TISSUE SPECIMEN FROM SKIN / Unknown 01/23/2019 01/24/2019 6:36 AM CDT Ann Smith DO LAB - PATHOLOGY/C YTOLOGY ORDERABLES DERMATOPATHOLOGY LABORATORY [facility] - Department of Dermatology [facility] [facility], 5th Floor Lab B [address] [phone] documented in this encounter Visit Diagnoses Not on filedocumented in this encounter Care Teams Resource Coordinator Relationship Specialty Start Date End Date Sally Wood MD [address] [place] [phone] PCP - General Family Medicine 08/14/18 documented as of this encounter
== END 2024-09-12 09:14 | disposition home or self-care (01) ==
PROVIDERS: PCP Family Medicine; Visit Provider Obstetrics & Gynecology Gynecology
DX: Z12.31 Encounter for screening mammogram for malignant neoplasm of breast (principal)
CPT/HCPCS: 77063; 77067

== ENCOUNTER 2024-12-09 14:15 | Outpatient (CLI) | payer BC, SELFPAY ==
--- NOTE | ~2024-12-09 | XR_ITS ---
3 VIEWS LUMBAR SPINE Ordering provider: Char Perdomo PA-C History: . M54.50 - Low back pain, unspecified . Comparison: None. FINDINGS: VERTEBRAL BODIES:Dextroscoliosis. No visible fracture or subluxation. DISK SPACES: Normal. SOFT TISSUES: Normal. IMPRESSION: No acute osseous abnormality lumbar spine. Reviewed, dictated and finalized at location A.
== END 2024-12-09 14:16 | disposition home or self-care (01) ==
PROVIDERS: PCP Family Medicine; Visit Provider Physician Assistant Medical
DX: M54.50 Low back pain, unspecified (principal)
CPT/HCPCS: 72100

== ENCOUNTER 2025-01-20 09:17 | Outpatient (CLI) | payer BC, SELFPAY ==
--- NOTE | ~2025-01-20 | DEXA_ITS ---
Bone Density Report Name: KLAUDIA MARCUM Age: 64 Sex: Female Ethnicity: White Date of : 1960 Indication: osteopenia; cancer; Referring Provider: CHARANJIT DELAROSA Study: Bone densitometry was performed. Exam Date: January 20, 2025 Accession number: [id number] Bone Density: Region BMD T-score Z-score Classification AP Spine(L1-L4) 0.865 -1.7 0.0 Osteopenia Femoral Neck (Left) 0.659 -1.7 -0.3 Osteopenia Total Hip (Left) 0.910 -0.3 0.9 Normal Femoral Neck (Right) 0.749 -0.9 0.5 Normal Total Hip (Right) 0.852 -0.7 0.4 Normal Total Hip Mean 0.881 -0.5 0.7 Normal World Health Organization criteria for BMD impression classify patients as: Normal (T-score at or above -1.0), Osteopenia (T-score between -1.0 and -2.5), or Osteoporosis (T-score at or below -2.5). 10-year Fracture Risk(1): Major Osteoporotic Fracture 9.4% Hip Fracture 1.1% Reported Risk Factors: [place] (), Neck BMD=0.659, BMI=25.9 (1) FRAX(R) Version 3.08. Fracture probability calculated for an untreated patient. Fracture probability may be lower if the patient has received treatment. Previous Exams: Region Exam Age BMD T-score BMD Change BMD Change Date g/cm2 vs Baseline vs Previous AP Spine (L1-L4) 01/20/2025 64 0.865 -1.7 -0.009 (-1.1%) -0.040 (-4.5%) 12/12/2022 62 0.906 -1.3 0.031 (3.6%)* 0.031 (3.6%)* 07/17/2019 59 0.874 -1.6 Total Hip(Left) 01/20/2025 64 0.910 -0.3 0.036 (4.1%)* 0.081 (9.7%)* 12/12/2022 62 0.830 -0.9 -0.045 (-5.1%) -0.045 (-5.1%) 07/17/2019 59 0.875 -0.6 Total Hip(Right) 01/20/2025 64 0.852 -0.7 0.032 (3.8%)* 0.055 (6.9%)* 12/12/2022 62 0.797 -1.2 -0.023 (-2.8%) -0.023 (-2.8%) 07/17/2019 59 0.820 -1.0 *Denotes significance at 95% confidence level, LSC for AP Spine = 0.022 g/cm2, LSC for Total Hip = 0.027 g/cm2 Clinical Information Provided by Patient: Has the following medical conditions: Cancer Patient maximum height was 62 Menopause Age: 48 Does not regularly consume dairy products Drinks caffeinated beverages Onset of menses at age 16 Number of children 1 Impression: The patient has low bone mass, based on the Total Spine T-score. The patient has an estimated ten-year risk of hip fracture of 1.1% and an estimated ten-year risk of major fracture of 9.4%, based on the WHO FRAX algorithm. The BMD for the AP Spine (L1-L4) decreased, changing by -4.5% since the last DXA exam. Discussion: BONE DENSITY IS LOW AT ONE OR MORE SKELETAL SITES. This patient's lowest T-score is low at one or more skeletal sites. It meets the World Health Organization's (WHO) criteria for ?low bone mass? (T-score between -1.0 and -2.5). The patient's 10-year risk of fracture as calculated by FRAX is less than the threshold where pharmacological therapy is recommended by the National Osteoporosis Foundation (NOF). However, all treatment decisions require clinical judgment and consideration of individual patient factors, including patient preferences, comorbidities, previous drug use, risk factors not captured in the FRAX model (e.g., frailty, falls, vitamin D deficiency, increased bone turnover, interval significant decline in bone density) and possible under or overestimation of fracture risk by FRAX. The patient should follow a healthful lifestyle (good nutrition with adequate calcium and vitamin D, and appropriate weight-bearing exercise). Follow-Up: Consider repeating this study in 2 years to reassess this patient's status, or sooner if there is some new clinical indication. Reported by: SUNIL on 01/20/2025 9:57:00 AM. Reviewed, dictated and finalized at location A.
--- OUTSIDE RECORDS SUMMARY | 2025-01-20 09:34 | XMS_ITS | Encounter Summary ---
Author Organization [facility] Address [address] [place] [address] Care Team Providers Care Installation & Maintenance Executive Name Role Phone Sally Wood MD Primary Care Provider Encounter Details Date Type Department Care Team (Late st Contact Info) Description 08/15/2019 Lab Requisition [facility] DermPath Lab [address] [facility] [place] [address] Ann Smith DO [address] [facility] [address] [place] [address] Social History Tobacco Use Types Packs/Day Years Used Date Smoking Tobacco: Never Assessed Comments Unknown Sex and Gender Information Value Date Recorded Sex Assigned at Not on file Legal Sex Female 6:35 AM BUMPER STRAIGHTENER Gender Identity Not on file Sexual Orientation Not on file documented as of this encounter Plan of Treatment Not on file documented as of this encounter Procedures Procedure Name Priority Date/Time Associated Diagnosis Comments DERMATOPATHOLOGY Routine 08/14/2019 12:0 0 AM BUMPER STRAIGHTENER documented in this encounter Results * DERMATOPATHOLOGY (08/14/2019 12:00 AM BUMPER STRAIGHTENER) Case Report Dermatopathology Report Case: [id number] Authorizing Provider: Ann Smith DO Collected: 08/14/2019 12:00 AM Ordering Location: [facility] DermPath Lab Received: 08/15/2019 09:32 AM Pathologist: Noah Grier MD Specimen: Skin, right upper back 0 12:30 PM BUMPER STRAIGHTENER DERMATOPATHOLOGY LABORATORY Final Diagnosis Specimen A. 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 The specimen consists of a shave biopsy measuring 7x5x1 mm. Jar 0. 0 12:30 PM [facility] DERMATOPATHOLOGY LABORATORY Microscopic Description Specimen A. SKIN, [...] a lichen planus-like keratosis. 0 12:30 PM [facility] DERMATOPATHOLOGY LABORATORY Disclaimer An external and internal [...] purposes. Billing Codes Specimen Charges Stain Charges 02975 1 0 12:30 PM [facility] DERMATOPATHOLOGY LABORATORY Embedded Images 0 12:30 PM [facility] DERMATOPATHOLOGY LABORATORY Pathology/Cytolog y TISSUE SPECIMEN FROM SKIN / Unknown 08/14/2019 08/15/2019 9:32 AM [facility] us Ann Smith DO LAB - PATHOLOGY/CYTOLOGY ORDERABLES Final Result DERMATOPATHOLOGY LABORATORY [facility] - Department of Dermatology [facility] [facility], 5th Floor Lab B [address] [phone] documented in this encounter Visit Diagnoses Not on filedocumented in this encounter Care Teams Installation & Maintenance Executive Relationship Specialty Start Date End Date Sally Wood MD [address] [place] [phone] PCP - General Family Medicine 08/14/18 documented as of this encounter
--- OUTSIDE RECORDS SUMMARY | 2025-01-20 09:34 | XMS_ITS | Clinical Summary ---
Author Organization [facility] Address [address] [place] [address] Care Team Providers Care Satellite Technician Name Role Phone Sally Wood MD Primary Care Provider Source Comments [facility],non-owned Affiliates and Associated Physician Practices is amultiple site organization consisting of ambulatory clinics and hospital sitesin [place], [place], [place] and [place]. This disclosure is being madepursuant to the Care Everywhere program and may not contain all information available regarding this patient. 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 Gender Identity Not on file Sexual Orientation [...] SCREENING 1960 LIPID TESTING 1960 MAMMOGRAM 1961 HIV SCREENING 1976 HEPATITIS C SCREENING 05/09/1979 DTAP/TDAP/TD VACCINES (1 - Tdap) 1980 PAP SMEAR 1982 PNEUMOCOCCAL VACCINE 50+ (1 of 1 - PCV) 2011 ZOSTER VACCINE (1 of 2) 2011 COVID-19 VACCINE (1 - 2023-2 5 season) 2024 DEPRESSION SCREENING 06/19/2024 INFLUENZA VACCINE (#1) 2025 04/16/2015 Respiratory Syncytial Virus (RSV) Vaccine Pt: or [...] age to complete this topic Care Teams Satellite Technician Relationship Specialty Start Date End Date Sally Wood MD [address] [place] [phone] PCP - General Family Medicine 08/14/18
--- OUTSIDE RECORDS SUMMARY | 2025-01-20 09:34 | XMS_ITS | Encounter Summary ---
Author Organization [facility] Address [address] [facility] [place] [address] Care Team Providers Care Computer Information Science Professor Name Role Phone Sally Wood MD Primary Care Provider Encounter Details Date Type Department Care Team (Late st Contact Info) Description 01/24/2019 Lab Requisition [facility] Care DermPath Lab [address] [facility] [place] [address] Ann Smith DO [address] [facility] [address] [place] [address] Social History Tobacco Use Types Packs/Day Years Used Date Smoking Tobacco: Never Assessed Comments Unknown Sex and Gender Information Value Date Recorded Sex Assigned at Not on file 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 Gender Identity Not on file Sexual Orientation Not on file documented as of this encounter Plan of Treatment Not on file documented as of this encounter Procedures Procedure Name Priority Date/Time Associated Diagnosis Comments DERMATOPATHOLOGY Routine 01/23/2019 12:0 0 AM CDT documented in this encounter Results * DERMATOPATHOLOGY (01/23/2019 12:00 AM CDT) Case Report Dermatopathology Report Case: [id number] Authorizing Provider: Ann Smith DO Collected: 01/23/2019 12:00 AM Pathologist: Talya Gómez MD Received: 01/24/2019 06:36 AM Specimen: Skin, right back 9 1:15 PM CDT DERMATOPATHOLOGY LABORATORY Final Diagnosis Specimen A. SKIN, right back: LENTIGINOUS MELANOCYTIC NEVUS, JUNCTIONAL TYPE, IRRITATED (JUNCTIONAL MELANOCYTIC NEVUS WITH ARCHITECTURAL DISORDER) (D22.5) 1:15 PM CDT DERMATOPATHOLOGY LABORATORY at 1315 CDT Clinical History R/O atypia. 1:15 PM CDT DERMATOPATHOLOGY LABORATORY Gross Description Specimen A: Received is one formalin filled container labeled with the patient's name and designated right back. The specimen consists of a shave measuring [id number]. Jar 0. 1:15 PM CDT DERMATOPATHOLOGY LABORATORY [...] characteristic determined by the Dermatopathology Laboratory at [facility], directed by Dr. Angelika Grier. These tests need not be, and therefore are not, approved by the [place] Food and Drug Administration. The tests are used for clinical purposes. Billing Codes Specimen Charges Stain Charges 20730 1 1:15 PM CDT DERMATOPATHOLOGY LABORATORY Embedded Images 1:15 PM CDT DERMATOPATHOLOGY LABORATORY Pathology/Cytolog y TISSUE SPECIMEN FROM SKIN / Unknown 01/23/2019 01/24/2019 6:36 AM CDT us Ann Smith DO LAB - PATHOLOGY/CYTOLOGY ORDERABLES Final Result DERMATOPATHOLOGY LABORATORY [facility] - Department of Dermatology [address] [place] [address], 5th Floor Lab [address] [phone] documented in this encounter Visit Diagnoses Not on filedocumented in this encounter Care Teams Computer Information Science Professor Relationship Specialty Start Date End Date Sally Wood MD [address] [place] [phone] PCP - General Family Medicine 08/14/18 documented as of this encounter
== END 2025-01-20 09:18 | disposition home or self-care (01) ==
PROVIDERS: PCP Family Medicine; Visit Provider Obstetrics & Gynecology Gynecology
DX: M85.89 Other specified disorders of bone density and structure, multiple sites (principal); Z78.0 Asymptomatic menopausal state
CPT/HCPCS: 77080